=== PATIENT | female | born 1995 ===

== ENCOUNTER 2018-04-18 20:25 | Emergency (ER) | payer OTHER ==
[2018-04-18 20:55] VITALS: RESP 16; O2SAT 100
--- NOTE | 2018-04-18 23:11 | ED PDOC ---
HPI: CCC, URI, Sore Throat Time Seen by Provider: 04/18/18 22:34 Chief Complaint (Nursing): ENT Problem Chief Complaint (Provider): Epistaxis History Per: Patient History/Exam Limitations: no limitations Have you had recent travel within the past 21 days to any of the following countries: [place], [place], [place] or [place]?: No Onset/Duration Of Symptoms: Intermittent Episodes, Sudden Onset Current Symptoms Are (Timing): Gone Now Location Of Pain: Other (Right nare) Severity: Moderate (Pt presents to the ED complaining of persistent intermitent nosebleeds that have become a sub-chronic issue for her over the past year. She indicates that her nose will bleed from time to time and today it bled for 40 minutes prior to stopping. In the exam room, her nose has ceased bleeding with no active signs of a nose bleed with the exception of dry crusting blood at the opening of the nostril. Pt denies recent illness, blood disorders or infections. Pt denies NVD and urinary symptoms) Past Medical History Reviewed: Historical Data, Nursing Documentation, Vital Signs Vital Signs: Last Vital Signs Temp 98.8 F 04/18/18 20:50 Pulse 88 04/18/18 20:50 Resp 16 04/18/18 20:50 BP 118/72 04/18/18 20:50 Pulse Ox 100 04/18/18 20:50 - Medical History Other PMH: epistaxis - Surgical History Surgical History: Tonsillectomy (and adenoidectomy) - Family History Family History: States: Unknown Family Hx - Living Arrangements Living Arrangements: With Family - Allergies Allergies/Adverse Reactions: Allergies Allergy/AdvReac Type Severity Reaction Status Date / Time benzoyl peroxide Allergy RASH Verified 04/18/18 20:52 Review of Systems ROS Statement: Except As Marked, All Systems Reviewed And Found Negative ENT: Positive for: Nose Discharge (see HPI) Physical Exam - Reviewed Nursing Documentation Reviewed: Yes Vital Signs Reviewed: Yes - Physical Exam Appears: Positive for: Well, Non-toxic, No Acute Distress. Negative for: Uncomfortable Head Exam: Positive for: ATRAUMATIC, NORMAL INSPECTION Skin: Positive for: Normal Color, Warm, Dry. Negative for: Diaphoresis, Pallor, Rash ENT: Positive for: Other (resolved epistaxis from right nare. no signs of active bleeding; visualization of mild region of erythemity noted. ) Neck: Positive for: Normal, Painless ROM, Supple. Negative for: Decreased ROM Cardiovascular/Chest: Positive for: Regular Rate, Rhythm Respiratory: Positive for: Normal Breath Sounds Pulses-Carotid (L): 2+ Pulses-Carotid (R): 2+ Pulses-Radial (L): 2+ Pulses-Radial (R): 2+ - ECG O2 Sat by Pulse Oximetry: 100 Medical Decision Making Medical Decision Making: R/O systemic heme or clotting issue CBC CMP PT/INR 0001 - Pt is stable Pt care is transferred to A [facility] PAC at 0001 Disposition - Clinical Impression Clinical Impression: Epistaxis not due to trauma - Patient ED Disposition Is Patient to be Admitted: Transfer of Care - Disposition Disposition: Transfer of Care Disposition Time: 00:01 Condition: STABLE Forms: [facility] (Pashto)
[2018-04-19 00:27] LABS: BASO % 0.4 % (0.0-2.0); EOS # 0.1 K/uL (0.0-0.7); EOS % 1.1 % (0.0-4.0); LYMPH # 1.8 K/uL (1.0-4.3); LYMPH % 26.3 % (20.0-40.0); MEAN CORPUSCULAR HEMOGLOBIN 26.7 pg (27.0-31.0); MEAN CORPUSCULAR HGB CONC 32.6 g/dL (33.0-37.0); MEAN PLATELET VOLUME 9.8 fl (7.2-11.7); MONO # 0.4 K/uL (0.0-0.8); MONO % 6.3 % (0.0-10.0); NEUT # 4.5 K/uL (1.8-7.0); NEUT % 65.9 % (50.0-75.0); NRBC % 0.1 % (0.0-0.0); RBC 4.85 Mil/uL (3.80-5.20); RED CELL DISTRIBUTION WIDTH 13.3 % (11.5-14.5); WHITE BLOOD COUNT 6.8 K/uL (4.8-10.8)
[2018-04-19 00:33] LABS: PROTHROMBIN TIME 10.9 Seconds (9.8-13.1)
[2018-04-19 00:35] LABS: PARTIAL THROMBOPLASTIN TIME 30.8 Seconds (25.6-37.1)
--- NOTE | 2018-04-19 00:38 | ED PDOC ---
- Laboratory Results Result Diagrams: 04/18/18 23:25 Lab Results: PT 10.9 Seconds (9.8-13.1) 04/18/18 23:25 INR 1.0 04/18/18 23:25 APTT 30.8 Seconds (25.6-37.1) 04/18/18 23:25 - ECG O2 Sat by Pulse Oximetry: 100 - Progress ED Course And Treament: Case endorsed to mortgage or loan underwriter from Kristen PEREIR[employer] pending labs Patient resting comfortably on re-eval, no active nose bleed in ED Patient educated on findings, discharged with instructions to follow up with ENT Educated on home remedies if bleeding returns Return precautions given Disposition - Clinical Impression Clinical Impression: Epistaxis not due to trauma - POA Present On Arrival: None - Disposition Referrals: Brijesh Trejo MD [Staff Provider] - Disposition: Routine/Home Disposition Time: 00:37 Condition: GOOD Instructions: Nosebleeds Forms: [facility] (Amharic)
[2018-04-19 00:39] LABS: ALB/GLOB RATIO 1.1 (1.0-2.1); ALBUMIN 4.6 g/dL (3.5-5.0); ALT/SGPT 33 U/L (9-52); AST/SGOT 35 U/L (14-36); BLOOD UREA NITROGEN 15 mg/dl (7-17); CALCIUM 9.4 mg/dL (8.4-10.2); GFR NON-AFRICAN AMERICAN > 60
[2018-04-19 00:51] VITALS: BP 114/61; PULSE 80; TEMP 98.2
== END 2018-04-19 00:50 | disposition home or self-care (01) ==
LOC: H.ER 20:25
DX: R04.0 Epistaxis (principal)